=== PATIENT | male | born 1955 | race Caucasian/White ===

== ENCOUNTER 2025-06-21 14:53 | Emergency (ER) | payer MEDICARE ==
[2025-06-21] MEDS ORDERED: HYDROcodone/Acetaminophen 10/325 mg Tablet ONE (15:20)
[2025-06-21 16:06] LABS: ALT (SGPT) 24 U/L (Less than 45); AST (SGOT) 33 U/L (11-34); Albumin 4.6 g/dL (3.1-4.5); Alkaline Phosphatase 74 U/L (40-110); Anion Gap 16 mmol/L (10-20); BUN (Urea Nitrogen) 18 mg/dL (8.4-25.7); Bilirubin, Total 0.3 mg/dL (0.3-1.2); Calc. Creatinine Clearance 0 mL/min (70-130); Calcium 8.8 mg/dL (7.8-10.44); Carbon Dioxide 22 mmol/L (23-31); Chloride 107 mmol/L (98-107); Globulin 3.7 g/dL (2.4-3.5); Glucose 196 mg/dL (80-115); Potassium 4.2 mmol/L (3.5-5.1); Sodium 141 mmol/L (136-145)
[2025-06-21 16:15] LABS: Hematocrit 44.1 % (38.8-50.0); Hemoglobin 12.3 g/dL (13.5-17.5); Mean Corpuscular Hemoglobin 19.9 pg (27.0-33.0); Mean Corpuscular Volume 71.2 fL (81.2-95.1); Platelet Count 408 10x3/uL (150-450); Red Blood Cell (RBC) Count 6.19 10x6/uL (4.32-5.72); White Blood Cell (WBC) Count 10.32 10x3/uL (3.5-10.5)
[2025-06-21 17:04] LABS: Glucose, Urine (Dipstick) >=1000 mg/dL (Negative); Leukocyte Negative (Negative); Protein, Urine (Dipstick) 30 mg/dl (Neg-Trace); Specific Gravity, Urine 1.020 (1.005-1.030)
[2025-06-21 17:11] LABS: #Basophils 0.03 10x3/uL (0.0-0.2); #Eosinophils 0.35 10x3/uL (0.0-0.5); #Monocytes 1.03 10x3/uL (0.0-1.1); #Neutrophils 6.52 10x3/uL (1.5-8.4); %Basophils 0.3 % (0.0-2.0); %Eosinophils 3.4 % (0.0-6.0); %Lymphocytes 22.8 % (18.0-47.0); %Monocytes 10.0 % (0.0-10.0); %Neutrophils 63.1 % (40.0-75.0); Anisocytosis SLIGHT = 6-15 cells (100X) (0-5/hpf); MDiff Complete? YES; Macrocytosis SLIGHT = 6-15 cells (100X) (0-5/hpf); Microcytosis SLIGHT = 6-15 cells (100X) (0-5/hpf); Ovalocytes SLIGHT = 2-5 cells (100X) (0-1/hpf); Platelet Adequacy Comment Appears Increased
[2025-06-21 17:32] LABS: CAUTI Indications for Culture Dysuria,urgency,freq; RBC/HPF 21-50 HPF (0-3); WBC/HPF 0-3 HPF (0-3)
[2025-06-21 17:36] LABS: Bacteria/HPF Rare-Few HPF (None Seen)
[2025-06-21 17:37] LABS: Urine Culture Reflex No No
== END 2025-06-21 17:21 | disposition home or self-care (01) ==
LOC: CSHERS 14:53
DX: R33.9 Retention of urine, unspecified (principal); E11.9 Type 2 diabetes mellitus without complications; I10 Essential (primary) hypertension
CPT/HCPCS: 36415; 51702; 51798; 80053; 81001; 85025; 99283